=== PATIENT | male | born 1975 | race Caucasian/White ===

== ENCOUNTER 2021-05-16 12:23 | Day surgery (SDC) | payer OTHER, SELFPAY ==
[~2021-05-16] VITALS: Ht 182.9 cm; Wt 108.9 kg
[~2021-05-16 12:23] MED LIST: CEFAZOLIN SOD 1 GM in D5W 50 ML IV ONE
[2021-05-16] MEDS ORDERED: PROPOFOL 200MG/ 20ML VIAL (DIPRIVAN) IV ONE (12:24)
[2021-05-16] MEDS ORDERED: BUPIVACAINE /PF 0.25% 30 ML VIAL INJ ONE (12:24)
[2021-05-16] MEDS ORDERED: GLYCOPYRROLATE 0.2 MG/ML VIAL IJ ONE (12:24)
[2021-05-16] MEDS ORDERED: DEXAMETHASONE SOD PHOSPHATE 4 MG/ML VIAL IVP ONE (12:24)
[2021-05-16] MEDS ORDERED: ROCURONIUM BROMIDE 10 MG/ML (ZEMURON) IV ONE (12:24)
[2021-05-16] MEDS ORDERED: LR 1,000 ML IV.SOLN IV ONE (12:24)
[2021-05-16] MEDS ORDERED: LIDOCAINE MPF 1% 50 MG/5 ML AMP INJ ONE (12:24)
[2021-05-16] MEDS ORDERED: PHENYLEPHRINE HCL 10 MG/ML VIAL (NEOSYNEPHRINE) IV ONE (12:24)
[2021-05-16] MEDS ORDERED: NS 1000 ML IV.SOLN IV ONE (12:24)
[2021-05-16] MEDS ORDERED: MIDAZOLAM HCL 5 MG/5 ML VIAL IVP ONE (12:24)
[2021-05-16] MEDS ORDERED: ALFENTANIL HCL 1000 MCG/2 ML AMP IVP ONE (12:24)
[2021-05-16] MEDS ORDERED: DESFLURANE 15 MIN GAS INH ONE (12:24)
[2021-05-16] MEDS ORDERED: ONDANSETRON HCL 4 MG/2 ML VIAL IVP ONE (12:24)
[2021-05-16] MEDS ORDERED: HYDROmorphone 1 MG/ML INJ. CARTRIDGE IVP PRN ×2 (15:15)
[2021-05-16] MEDS ORDERED: LABETALOL 100 MG/ 20ML VIAL IVP PRN (15:15)
[2021-05-16] MEDS ORDERED: MIDAZOLAM HCL 2 MG/2 ML VIAL (VERSED) IVP PRN (15:15)
[2021-05-16] MEDS ORDERED: LR 1,000 ML IV SCH (15:15)
[2021-05-16] MEDS ORDERED: MEPERIDINE HCL/PF 25 MG/ML DISP.SYRIN IVP PRN (15:15)
[2021-05-16] MEDS ORDERED: METOCLOPRAMIDE HCL 10 MG/2 ML VIAL IVP PRN (15:15)
[2021-05-16] MEDS ORDERED: hydrALAZINE HCL 20 MG/ML VIAL IVP PRN (15:15)
[2021-05-16 17:31] VITALS: BP_SYST 144
== END 2021-05-16 17:25 | disposition home or self-care (01) ==
LOC: SDS 12:23 → SMU 12:25 → SDS 17:25
PROVIDERS: ATTEND Colon & Rectal Surgery
DX: R22.2 Localized swelling, mass and lump, trunk (principal); L72.0 Epidermal cyst; I10 Essential (primary) hypertension; E78.5 Hyperlipidemia, unspecified; E66.9 Obesity, unspecified; Z68.32 Body mass index [BMI] 32.0-32.9, adult; Z79.899 Other long term (current) drug therapy; Z20.822 Contact with and (suspected) exposure to COVID-19
CPT/HCPCS: 11406; 88304; J0690; J1100; J2001; J2250; J2370; J2405; J2704; J3490 ×3; J7030; J7060; J7120; U0003; 88305